=== PATIENT | female | born 1965 | race Two or more races ===

== ENCOUNTER 2022-08-11 14:53 | Outpatient (CLI) | payer MEDICARE | END 2022-08-11 14:54 | disposition home or self-care (01) | LOC: BICMAMMO 14:53 | PROVIDERS: ATTEND Family Medicine | DX: R92.1 Mammographic calcification found on diagnostic imaging of breast (principal) | CPT/HCPCS: 77066; G0279 ==

== ENCOUNTER 2023-01-17 15:02 | Outpatient (CLI) | payer MEDICARE | END 2023-01-17 15:03 | disposition home or self-care (01) | LOC: SCSRAD 15:02 | PROVIDERS: ATTEND Nurse Practitioner Family | DX: M25.561 Pain in right knee (principal); M25.562 Pain in left knee; M17.11 Unilateral primary osteoarthritis, right knee ==